=== PATIENT | female | born 1970 | race Two or more races ===

== ENCOUNTER 2022-05-20 07:47 | Outpatient (CLI) | payer OTHER | END 2022-05-20 07:48 | disposition home or self-care (01) | LOC: LAB 07:47 | PROVIDERS: ATTEND Orthopaedic Surgery | DX: D64.9 Anemia, unspecified (principal); E88.9 Metabolic disorder, unspecified; D68.8 Other specified coagulation defects; N39.0 Urinary tract infection, site not specified; A49.02 Methicillin resistant Staphylococcus aureus infection, unspecified site; E11.9 Type 2 diabetes mellitus without complications; I49.9 Cardiac arrhythmia, unspecified; I10 Essential (primary) hypertension; Z76.89 Persons encountering health services in other specified circumstances ==

== ENCOUNTER 2022-06-03 07:42 | Day surgery (SDC) | payer OTHER ==
[~2022-06-03] VITALS: Ht 167.6 cm; Wt 136.1 kg
== END 2022-06-03 16:50 | disposition home or self-care (01) ==
LOC: CIR.AMB 07:42
PROVIDERS: ATTEND Orthopaedic Surgery
DX: S83.231A Complex tear of medial meniscus, current injury, right knee, initial encounter (principal); M23.351 Other meniscus derangements, posterior horn of lateral meniscus, right knee; M17.11 Unilateral primary osteoarthritis, right knee; M65.861 Other synovitis and tenosynovitis, right lower leg; M94.261 Chondromalacia, right knee; Z20.822 Contact with and (suspected) exposure to COVID-19